=== PATIENT | female | born 1985 | race Hispanic/Latino ===

== ENCOUNTER 2018-04-01 09:45 | Emergency (ER) | payer OTHER ==
[2018-04-01] MEDS ORDERED: Sodium Chloride 0.9% 1,000 ML IV STA (10:10)
[2018-04-01] MEDS ORDERED: DiphenhydrAMINE 50 mg/ml Inj IVP STA (10:10)
--- NOTE | 2018-04-01 10:12 | ED PDOC ---
Arrival/HPI - General Time Seen by Provider: 04/01/18 09:47 Historian: Patient - History of Present Illness Narrative History of Present Illness (Text): 04/01/18 10:09 33 year old female, whose past medical history includes, migraines, who presents to the ED complaining of a migraine since yesterday morning. Patient noes associated vomiting. Patient states she couldn't sleep last night due to pain. Patient denies any fever, chills, chest pain, sob, diarrhea, back pain, neck pain, or any other complaints. Time/Duration: 24 hours Symptom Onset: Gradual Symptom Course: Unchanged Activities at Onset: Light Context: Home Past Medical History - Provider Review Nursing Documentation Reviewed: Yes Family/Social History - Physician Review Nursing Documentation Reviewed: Yes Family/Social History: Unknown Family HX Allergies/Home Meds Allergies/Adverse Reactions: Allergies colloidal bismuth subcitrate [From Pylera] Allergy (Verified 04/01/18 10:25) ANAPHYLAXIS metronidazole [From Pylera] Allergy (Verified 04/01/18 10:25) ANAPHYLAXIS tetracycline [From Pylera] Allergy (Verified 04/01/18 10:25) ANAPHYLAXIS Home Medications: Home Meds Medication Instructions Recorded Confirmed Citalopram Hydrobromide [Celexa] 10 mg PO DAILY 04/01/18 04/01/18 Montelukast [Singulair] 10 mg PO DAILY 04/01/18 04/01/18 buPROPion SR [Wellbutrin] 150 mg PO DAILY 04/01/18 04/01/18 Review of Systems - Physician Review All systems were reviewed & negative as marked: Yes - Review of Systems Constitutional: Normal Eyes: Normal ENT: Normal Respiratory: Normal. absent: SOB, Cough Cardiovascular: Normal. absent: Chest Pain Gastrointestinal: Vomiting. absent: Abdominal Pain Genitourinary Female: Normal. absent: Dysuria, Frequency Musculoskeletal: Normal. absent: Back Pain, Neck Pain Skin: Normal. absent: Rash Neurological: Headache (migraine) Endocrine: Normal Hemo/Lymphatic: Normal Psychiatric: Normal Physical Exam Vital Signs Reviewed: Yes Vital Signs Temp Pulse Resp BP Pulse Ox 04/01/18 10:07 98.1 F 70 18 125/80 100 Temperature: Afebrile Blood Pressure: Normal Pulse: Regular Respiratory Rate: Normal Appearance: Positive for: Well-Appearing, Non-Toxic, Comfortable Pain Distress: None Mental Status: Positive for: Alert and Oriented X 3 Medical Decision Making ED Course and Treatment: 04/01/18 10:15 Impression: 33 year old female presents to the ED c/o a migraine since yesterday morning. Plan: -- Labs -- Benadryl -- Reglan -- Sodium Chloride -- UA -- POC test -- Reassess and disposition Progress Notes: 04/01/18 11:09 Patient states her symptoms are improving. Is requesting a CT. Risks were discussed with pt but pt still insists on CT. 04/01/18 12:04 CT Head reviewed, shows: IMPRESSION: No acute intracranial abnormality. - Lab Interpretations Lab Results: 04/01/18 10:28 04/01/18 10:20 Lab Results 04/01/18 10:28: WBC 5.1, RBC 4.40, Hgb 11.7 L, Hct 36.0, MCV 81.8, MCH 26.6, MCHC 32.5, RDW 14.0, Plt Count 233, MPV 9.3, Gran % 73.4 H, Lymph % (Auto) 22.1 , Holt % (Auto) 3.7, Eos % (Auto) 0.6 L, Baso % (Auto) 0.2, Gran # 3.76, Lymph # (Auto) 1.1 L, Holt # (Auto) 0.2, Eos # (Auto) 0.0, Baso # (Auto) 0.01 04/01/18 10:20: Sodium 140, Potassium 4.0, Chloride 102, Carbon Dioxide 28, Anion Gap 14, BUN 17, Creatinine 0.6 L, Est GFR ( Amer) > 60, Est GFR ( Non-Af Amer) > 60, Random Glucose 93, Calcium 9.1, Total Bilirubin 0.3, AST 29, ALT 19, Alkaline Phosphatase 67, Total Protein 7.3, Albumin 4.3, Globulin 3.0, Albumin/Globulin Ratio 1.4 04/01/18 10:20: PT 11.2, INR 0.97, APTT 28.1 04/01/18 10:00: Urine Color Yellow, Urine Appearance Clear, Urine pH 8.0, Ur Specific [place] 1.015, Urine Protein Negative, Urine Glucose (UA) Negative, Urine Ketones 15 H, Urine Blood Trace-intact H, Urine Nitrate Negative, Urine Bilirubin Negative, Urine Urobilinogen 0.2, Ur Leukocyte Esterase Negative, Urine RBC 0 - 2, Urine WBC 0 - 2, Ur Epithelial Cells 1 - 3, Urine Bacteria Small, Urine HCG, Qual Negative - RAD Interpretation Radiology Orders: 04/01/18 11:09 HEAD W/O CONTRAST [CT] Stat - Medication Orders Current Medication Orders: Discontinued Medications Diphenhydramine HCl (Benadryl) 25 mg IVP STAT STA Stop: 04/01/18 10:11 Last Admin: 04/01/18 10:35 Dose: 25 mg IVP Administration Document 04/01/18 10:35 EAR (Rec: 04/01/18 10:35 EAR [id number]) Charges for Administration # of IVP Administrations 1 Sodium Chloride (Sodium Chloride 0.9%) 1,000 mls @ 999 mls/hr IV .Q1H1M STA Stop: 04/01/18 11:10 Last Admin: 04/01/18 10:36 Dose: 999 mls/hr eMAR Start Stop Document 04/01/18 10:36 EAR (Rec: 04/01/18 10:37 EAR [id number]) Intravenous Solution Start Date 04/01/18 Start Time 10:36 End Date 04/01/18 End time 11:40 Total Infusion Time 64 Metoclopramide HCl (Reglan) 10 mg IVP STAT STA Stop: 04/01/18 10:11 Last Admin: 04/01/18 10:35 Dose: 10 mg IVP Administration Document 04/01/18 10:35 EAR (Rec: 04/01/18 10:35 EAR [id number]) Charges for Administration # of IVP Administrations 1 - Scribe Statement The provider has reviewed the documentation as recorded by the Scribe Estrellita Renee All medical record entries made by the Scribe were at my direction and personally dictated by me. I have reviewed the chart and agree that the record accurately reflects my personal performance of the history, physical exam, medical decision making, and the department course for this patient. I have also personally directed, reviewed, and agree with the discharge instructions and disposition. Disposition/Present on Arrival - Present on Arrival Any Indicators Present on Arrival: No - Disposition Have Diagnosis and Disposition been Completed?: Yes Diagnosis: Headache Disposition: HOME/ ROUTINE Disposition Time: 10:00 Patient Problems: Current Active Problems Problem Status Onset Headache Acute Condition: STABLE Discharge Instructions (ExitCare): Migraine Headache (DC), Headache, Adult (DC) Additional Instructions: return to er with worsening symptoms or concerns. Prescriptions: Acetaminophen/Butalbital/Caf [Fioricet] 1 tab PO Q8 PRN #20 tab PRN Reason: Headache Referrals: [facility] [Outside] - Follow up with primary [facility] [place] [facility] [place] Follow up with primary Rob Smith MD [Staff Provider] - Follow up with primary Forms: [email or web address] ([place]ian)
[2018-04-01 10:13] VITALS: RESP 18
[2018-04-01 10:33] LABS: URINE BILIRUBIN NEGATIVE (NEGATIVE); URINE BLOOD TRACE-INTACT (NEGATIVE); URINE GLUCOSE (UA) NEGATIVE (NEGATIVE); URINE LEUKOCYTE ESTERASE NEGATIVE Leu/uL (NEGATIVE); URINE PROTEIN NEGATIVE mg/dL (<30 mg/dL); URINE UROBILINOGEN 0.2 E.U./dL (<1 E.U./dL)
[2018-04-01 10:34] LABS: URINE APPEARANCE CLEAR (CLEAR); URINE COLOR YELLOW (YELLOW)
[2018-04-01 10:37] LABS: HCG,QUALITATIVE URINE NEGATIVE (NEGATIVE)
[2018-04-01 10:47] LABS: URINE BACTERIA SMALL (NEG); URINE RBC 0 - 2 /hpf (0-2); URINE WBC 0 - 2 /hpf (0-6)
[2018-04-01 11:01] LABS: ALB/GLOB RATIO 1.4 (1.1-1.8); ALBUMIN 4.3 g/dL (3.0-4.8); ALT/SGPT 19 U/L (7-56); AST/SGOT 29 U/L (14-36); BLOOD UREA NITROGEN 17 mg/dL (7-21); CALCIUM 9.1 mg/dL (8.4-10.5); GFR NON-AFRICAN AMERICAN > 60; INR 0.97; PARTIAL THROMBOPLASTIN TIME 28.1 Seconds (25.1-36.5); PROTHROMBIN TIME 11.2 SECONDS (9.4-12.5)
[2018-04-01 11:45] LABS: BASO # 0.01 K/mm3 (0.0-2.0); BASO % 0.2 % (0.0-3.0); EOS % 0.6 % (1.5-5.0); GRAN # 3.76 (1.4-6.5); GRAN % 73.4 % (50.0-68.0); HEMOGLOBIN 11.7 g/dL (12.0-16.0); LYMPH # 1.1 (1.2-3.4); LYMPH % 22.1 % (22.0-35.0); MEAN CELL VOLUME 81.8 fl (80.0-105.0); MEAN CORPUSCULAR HEMOGLOBIN 26.6 pg (25.0-35.0); MEAN CORPUSCULAR HGB CONC 32.5 g/dl (31.0-37.0); MEAN PLATELET VOLUME 9.3 fl (7.0-11.0); MONO # 0.2 (0.1-0.6); MONO % 3.7 % (1.0-6.0); RBC 4.4 10^6/uL (3.5-6.1); WHITE BLOOD COUNT 5.1 10^3/ul (4.5-11.0)
--- NOTE | 2018-04-01 11:56 | CT ---
Date of service: 04/01/2018 PROCEDURE: CT HEAD WITHOUT CONTRAST. HISTORY: Headache COMPARISON: None available. TECHNIQUE: Axial computed tomography images were obtained through the head/brain without intravenous contrast. Radiation dose: Total exam DLP = 904.85 mGy-cm. This CT exam was performed using one or more of the following dose reduction techniques: Automated exposure control, adjustment of the mA and/or kV according to patient size, and/or use of iterative reconstruction technique. FINDINGS: HEMORRHAGE: No intracranial hemorrhage. BRAIN: Gonzales-white matter differentiation is preserved. There is no mass, mass effect or abnormal extra-axial fluid collection. There is no territorial infarction. The midline sagittal structures are normal. VENTRICLES: The ventricles are normal in size, shape and configuration. CALVARIUM: The skull base and calvarium are normal. PARANASAL SINUSES: Predominantly clear. MASTOID AIR CELLS: Predominantly clear. OTHER FINDINGS: None. IMPRESSION: No acute intracranial abnormality.
[2018-04-01 13:00] VITALS: BP 122/69; O2SAT 98
[2018-04-01 13:01] VITALS: PULSE 78; TEMP 98.1
== END 2018-04-01 13:00 | disposition home or self-care (01) ==
LOC: ED 09:45 → MERGE 09:45 → ED 13:00
DX: R51 Headache (principal)
CPT/HCPCS: 70450; 80053; 81001; 84703; 85025; 85610; 85730; 96361; 96374; 96375; 99285; J1200; J2765; J7030